=== PATIENT | male | born 1975 | race Caucasian/White ===

== ENCOUNTER 2024-12-13 13:23 | Outpatient (CLI) | payer OTHER, SELFPAY | END 2024-12-13 13:24 | disposition home or self-care (01) | PROVIDERS: PCP Family Medicine; Visit Provider Family Medicine | DX: R10.9 Unspecified abdominal pain (principal); Z13.6 Encounter for screening for cardiovascular disorders | CPT/HCPCS: 80053; 80061 ==

== ENCOUNTER 2025-04-09 13:11 | Outpatient (CLI) | payer OTHER, SELFPAY | END 2025-04-09 13:12 | disposition home or self-care (01) | LOC: LKVREF 13:11 | PROVIDERS: PCP Family Medicine; Visit Provider Family Medicine | DX: E78.5 Hyperlipidemia, unspecified (principal) | CPT/HCPCS: 80061 ==